=== PATIENT | female | born 1980 | race Caucasian/White ===

== ENCOUNTER 2020-01-06 22:24 | Emergency (ER) | payer OTHER ==
[~2020-01-06] VITALS: Ht 152.4 cm; Wt 48.1 kg
[2020-01-07] MEDS ORDERED: PERCOCET 5-3251 EACH PO (07:19)
== END 2020-01-07 07:46 | disposition home or self-care (01) ==
LOC: ER 22:24
DX: D25.9 Leiomyoma of uterus, unspecified (principal); R10.2 Pelvic and perineal pain